=== PATIENT | male | born 1955 | race Caucasian/White ===

== ENCOUNTER → 2016-06-03 | Outpatient (CLI) | payer BC ==
[2016-06-03 16:40] LABS: BASOPHILS % (AUTO) 1 % (0-2); EOSINOPHILS # (AUTO) 0.1 10^3uL; EOSINOPHILS % (AUTO) 1 % (0-4); LYMPHOCYTES # (AUTO) 1.1 X10^3; MEAN CORPUSCULAR HGB CONC 34.1 g/dL (31.0-37.0); MEAN CORPUSCULAR VOLUME 88 FL (80-100); MONOCYTES # (AUTO) 0.6 X10^3; MONOCYTES % (AUTO) 10 % (3-11); NEUTROPHILS # (AUTO) 3.9 X10^3; NEUTROPHILS % (AUTO) 69 % (51-67); PLATELET COUNT 290 10^3uL (150-450); WHITE BLOOD COUNT 5.67 10^3uL (4.0-11.0)
[2016-06-03 16:49] LABS: ABSOLUTE RETIC # 49 10^3uL (22-82)
[2016-06-04 13:30] LABS: IRON 92 ug/dL (65-175); UNBOUND IRON CONTENT 209 ug/dl (126-382)
[2016-06-05 16:45] LABS: KAPPA LIGHT CHAINS SERUM 2.22 mg/dL; LAMBDA LIGHT CHAINS SERUM 1.84 mg/dL (())
== END ==
LOC: LAB 16:22
PROVIDERS: ATTEND Internal Medicine Hematology & Oncology
DX: D64.9 Anemia, unspecified (principal)
CPT/HCPCS: 36415; 82668; 82728; 82746; 82784; 83010; 83540; 83550; 83615; 83883; 84155; 85025; 85045; 86334

== ENCOUNTER → 2016-09-02 | Outpatient (CLI) | payer BC ==
[2016-09-02 10:15] LABS: BASOPHILS % (AUTO) 1 % (0-2); EOSINOPHILS % (AUTO) 1 % (0-4); LYMPHOCYTES # (AUTO) 0.7 X10^3; MEAN CORPUSCULAR HEMOGLOBIN 30.3 PG (26.0-34.0); MEAN CORPUSCULAR HGB CONC 34.1 g/dL (31.0-37.0); MEAN CORPUSCULAR VOLUME 89 FL (80-100); MEAN PLATELET VOLUME 9.2 FL (6.0-9.5); MONOCYTES # (AUTO) 0.4 X10^3; MONOCYTES % (AUTO) 10 % (3-11); NEUTROPHILS # (AUTO) 2.6 X10^3; NEUTROPHILS % (AUTO) 69 % (51-67); PLATELET COUNT 213 10^3uL (150-450); WHITE BLOOD COUNT 3.74 10^3uL (4.0-11.0)
== END ==
LOC: LAB 09:57
PROVIDERS: ATTEND Internal Medicine Hematology & Oncology
DX: D64.9 Anemia, unspecified (principal)
CPT/HCPCS: 36415; 85025